=== PATIENT | female | born 1980 | race Caucasian/White ===

== ENCOUNTER 2020-09-01 16:01 | Emergency (ER) | payer OTHER ==
[2020-09-01 18:56] LABS: HEMOGLOBIN 13.8 gm/dl (12.3-15.3); RED BLOOD COUNT 4.8 M/UL (4.00-5.10); WHITE BLOOD COUNT 8.7 K/UL (4.5-11.0)
[2020-09-01] MEDS ORDERED: PROTONIX40 MG PO (21:24)
[2020-09-01] MEDS ORDERED: IBUPROFEN800 MG PO (21:24)
== END 2020-09-01 21:50 | disposition home or self-care (01) ==
LOC: ER1 16:01
PROVIDERS: Physician Assistant Medical
DX: R09.1 Pleurisy (principal); Z20.822 Contact with and (suspected) exposure to COVID-19
CPT/HCPCS: 0240U; 71045; 80053; 81001; 82550; 82553; 83690; 83874; 84484; 84703; 85025; 85379; 85652; 86140; 87086; 93005; 96374; 96375; 99285; C9113; J1885; J2405; J7030; Q9967